=== PATIENT | female | born 1960 | race Caucasian/White ===

== ENCOUNTER 2017-02-15 09:03 | Emergency (ER) | payer OTHER ==
[~2017-02-15] VITALS: Ht 157.5 cm; Wt 92.7 kg
[2017-02-15 09:06] VITALS: Ht 157.5 cm; Wt 92.7 kg
[2017-02-15] MEDS ORDERED: HYDROmorphONE 1 MG/ML SYG IV STA (09:21)
[2017-02-15] MEDS ORDERED: SOD CHLORIDE 0.9% 1,000 ML IV STA (09:21)
[2017-02-15] MEDS ORDERED: ONDANSETRON 4 MG INJ IV STA (09:21)
[2017-02-15 10:29] LABS: ADD UMIC NO; UR ASCORBIC ACID NEGATIVE (NEGATIVE); UR BILIRUBIN (Dip) NEGATIVE (NEGATIVE); UR BLOOD (Dip) NEGATIVE (NEGATIVE); UR CLARITY CLEAR (CLEAR); UR COLOR STRAW (YELLOW); UR GLUCOSE (Dip) NEGATIVE (NEGATIVE); UR KETONES (Dip) TRACE mg/dL (NEGATIVE); UR LEUKOCYTE ESTERASE (Dip) NEGATIVE Leu/ul (NEGATIVE); UR NITRITE (Dip) NEGATIVE (NEGATIVE); UR TOTAL PROTEIN (Dip) NEGATIVE (NEGATIVE); UR UROBILINOGEN (Dip) NEGATIVE (NEGATIVE)
[2017-02-15 10:30] LABS: BASOPHIL # 0.1 10^3/ul (0.0-0.1); BASOPHILS % 0.9 % (0.0-2.0); EOSINOPHILS # 0.1 10^3/ul (0.0-0.5); EOSINOPHILS % 0.6 % (0.0-7.0); HEMATOCRIT 40.5 % (37.0-47.0); HEMOGLOBIN 13.9 g/dl (12.0-16.0); LYMPHOCYTES # 2.3 10^3/ul (0.8-2.9); LYMPHOCYTES % 27.9 % (15.0-51.0); MEAN CORPUSCULAR HEMOGLOBIN 29.2 pg (29.0-33.0); MEAN CORPUSCULAR HGB CONC 34.3 g/dl (32.0-37.0); MEAN CORPUSCULAR VOLUME 85.1 fl (82.0-101.0); MEAN PLATELET VOLUME 9.8 fl (7.4-10.4); MONOCYTE # 0.4 10^3/ul (0.3-0.9); MONOCYTES % 4.6 % (0.0-11.0); NEUTROPHIL # 5.3 10^3/ul (1.6-7.5); NEUTROPHILS % 65.8 % (39.0-77.0); PLATELET COUNT 337 10^3/UL (140-415); RED BLOOD COUNT 4.76 10^6/ul (4.20-5.40); RED CELL DISTRIBUTION WIDTH 12.6 % (11.5-14.5); WHITE BLOOD COUNT 8.1 10^3/ul (4.8-10.8)
--- NOTE | 2017-02-15 10:31 | RADRPT ---
PROCEDURE: CT Abdomen and Pelvis without contrast. CLINICAL INDICATION: Left flank pain since last night. TECHNIQUE: CT scan of the abdomen and pelvis without contrast was performed on a multidetector hig h-resolution CT scanner. The patient was scanned without intravenous contrast. Coronal and sagittal reformatted images were obtained from the axial source images. Images were reviewed on a high-resol [employer] PACS workstation. The total exam CTDI equals 21.5 mGy and the total exam DLP equals 1215.88 mG y-cm. One or the following dose reduction techniques were used: -Automated exposure control. -Adjustment of the mA and/or KV according to patient's size. -Use of iterative reconstruction technique. DICOM images are available. COMPARISON: None. FINDINGS: Lung Bases: Unremarkable. GI:. There is a tiny hiatal hernia present. Liver: Liver appears normal in size with a decrease in the overall attenuation consistent with mild steatosis. Gallbladder: Gallbladder appears mildly distended without wall thickening or biliary tree dilatation . Pancreas: Unremarkable. Spleen: Unremarkablel Adrenals: Unremarkable. Kidneys: There is right-sided nephrolithiasis. There is no evidence of obstructive uropathy or urete ral lithiasis. Bladder: Unremarkable. Pelvic Organs: Unremarkable. Skeleton: Normal for age. Other: There is a small umbilical hernia containing fat and a small right inguinal hernia containing fat. IMPRESSION: 1. Decreased attenuation throughout the liver consistent with diffuse steatosis. 2. Mildly dilated gallbladder. This may be due to prolonged fasting. 3. Small hiatal hernia. 4. Right-sided nephrolithiasis. No evidence of obstructive uropathy or ureteral lithiasis. 5. Mild scattered colonic diverticulosis without evidence of acute diverticulitis. 6. Normal-appearing vermiform appendix visualized. 7. Small umbilical and right inguinal hernias containing fat only. RPTAT: [facility] Physician Ralph Date Time Electronically viewed and signed by Physician Ralph on 02/15/2017 10:31 JUANIS/
[2017-02-15 10:56] LABS: ALBUMIN 4.7 g/dl (3.3-4.9); ALBUMIN/GLOBULIN RATIO 1.38; BILIRUBIN,INDIRECT 0.5 mg/dl (0-1.1); BILIRUBIN,TOTAL 0.5 mg/dl (0.2-1.3); CALCIUM 10.7 mg/dl (8.4-10.2); CREATININE 0.54 mg/dl (0.44-1.00); POTASSIUM 3.6 mmol/L (3.5-5.1); TOTAL PROTEIN 8.1 g/dl (6.1-8.1)
[2017-02-15] MEDS ORDERED: KETOROLAC 30 MG INJ IV STA (11:21)
[2017-02-15 12:52] VITALS: BP 147/71; PULSE 77; RESP 18; TEMP 98.4
--- NOTE | 2017-02-15 13:24 | ERD ---
ER Documentation Chief Complaint Chief Complaint pt bib with c/o left flank pain, dx kidney stone from [facility] 56-year-old female history of nephrolithiasis on the right side is coming in with severe left-sided flank and low back pain starting last night. The patient reports that she had a CT scan on January 20 when she was seen at [facility] in [place] and was diagnosed with right-sided nephrolithiasis. She then went and last night because she had sudden onset of sharp pain on the left flank, it is achy diffuse and radiates to her left lower quadrant in the abdomen. The pain does not seem to get better with the Naprosyn , she went to the emergency department last night where they did blood work and her labs were all normal and she was discharged home with additional pain medicine including Percocet. She denies fevers or chills or vomiting, diarrhea. She denies chest pain, shortness of breath, dizziness. ROS All systems reviewed and are negative except as per history of present illness. Allergies Allergies: Coded Allergies: No Known Allergy (Unverified , 02/15/17) Physical Exam Vitals Vital Signs Date Time Temp Pulse Resp B/P Pulse Ox O2 Delivery O2 Flow Rate FiO2 02/15/17 12:52 98.4 77 18 147/71 96 Room Air 02/15/17 09:06 97.2 94 18 174/68 99 Physical Exam General: Well-developed, well-nourished. The patient appears in no acute distress. HEENT: Head is normocephalic, atraumatic. No scleral icterus. Neck: Supple. Nontender. Lungs: Clear to auscultation. Normal air movement. Heart: Regular rate and rhythm. S1 and S2 are normal. No murmurs, gallops, or rubs. Abdomen: Soft, nontender, nondistended. Bowel sounds are normoactive. Diffuse low back pain tenderness with palpation in the lumbar region, there is no midline pain. No CVA tenderness. No abdominal masses. Extremities: No clubbing or cyanosis. Normal pulses. Moving extremities x 4. No weakness. Neurologic: Alert and oriented 3. No focal deficits. Skin: Normal turgor. No rash or lesions. Result Diagram: 02/15/17 0950 02/15/17 0950 Results 24 hrs Laboratory Tests Test 02/15/17 09:43 02/15/17 09:50 Urine Color STRAW Urine Clarity CLEAR Urine pH 9.0 Urine Specific [place] 1.010 Urine Ketones TRACEmg/dL Urine Nitrite NEGATIVEmg/dL Urine Bilirubin NEGATIVEmg/dL Urine Urobilinogen NEGATIVEmg/dL Urine Leukocyte Esterase NEGATIVELeu/ul Urine Hemoglobin NEGATIVEmg/dL Urine Glucose NEGATIVEmg/dL Urine Total Protein NEGATIVEmg/dl White Blood Count 8.110^3/ul Red Blood Count 4.7610^6/ul Hemoglobin 13.9g/dl Hematocrit 40.5% Mean Corpuscular Volume 85.1fl Mean Corpuscular Hemoglobin 29.2pg Mean Corpuscular Hemoglobin Concent 34.3g/dl Red Cell Distribution Width 12.6% Platelet Count 88028^3/UL Mean Platelet Volume 9.8fl Neutrophils % 65.8% Lymphocytes % 27.9% Monocytes % 4.6% Eosinophils % 0.6% Basophils % 0.9% Nucleated Red Blood Cells % 0.0/100WBC Neutrophils # 5.310^3/ul Lymphocytes # 2.310^3/ul Monocytes # 0.410^3/ul Eosinophils # 0.110^3/ul Basophils # 0.110^3/ul Nucleated Red Blood Cells # 0.010^3/ul Sodium Level 144mmol/L Potassium Level 3.6mmol/L Chloride Level 107mmol/L Carbon Dioxide Level 23mmol/L Anion Gap 18 Blood Urea Nitrogen 14mg/dl Creatinine 0.54mg/dl Glucose Level 146mg/dl Calcium Level 10.7mg/dl Total Bilirubin 0.5mg/dl Direct Bilirubin 0.00mg/dl Indirect Bilirubin 0.5mg/dl Aspartate Amino Transf (AST/SGOT) 24IU/L Alanine Aminotransferase (ALT/SGPT) 35IU/L Alkaline Phosphatase 133IU/L Total Protein 8.1g/dl Albumin 4.7g/dl Globulin 3.40g/dl Albumin/Globulin Ratio 1.38 Lipase 101U/L Current Medications Medications (Trade) Dose Ordered Sig/Lesly Route PRN Reason Start Time Stop Time Status Last Admin Dose Admin Sodium Chloride (NS) 1,000 ml @ 1,000 mls/hr Q1H STAT IV 02/15/17 09:21 02/15/17 10:20 DC 02/15/17 09:58 Hydromorphone HCl (Dilaudid) 1 mg ONCE STAT IV 02/15/17 09:21 02/15/17 09:23 DC 02/15/17 09:50 Ondansetron HCl (Zofran Inj) 4 mg ONCE STAT IV 02/15/17 09:21 02/15/17 09:23 DC 02/15/17 09:49 Ketorolac Tromethamine (Toradol) 30 mg ONCE STAT IV 02/15/17 11:21 02/15/17 11:22 DC 02/15/17 12:04 DIAGNOSTIC IMAGING REPORT Patient: SERGO MCNAMARA : 1960 Age: 56 Sex: F MR #: [id number] DOS: 02/15/17920 Ordering MD: JOSÉ WHITAKER PA-C Location: [facility] Room/Bed: PROCEDURE: CT Abdomen and Pelvis without contrast. CLINICAL INDICATION: Left flank pain since last night. TECHNIQUE: CT scan of the abdomen and pelvis without contrast was performed on a multidetector high-resolution CT scanner. The patient was scanned without intravenous contrast. Coronal and sagittal reformatted images were obtained from the axial source images. Images were reviewed on a high-resolution PACS workstation. The total exam CTDI equals 21.5 mGy and the total exam DLP equals 1215.88 mGy-cm. One or the following dose reduction techniques were used: -Automated exposure control. -Adjustment of the mA and/or KV according to patient's size. -Use of iterative reconstruction technique. DICOM images are available. COMPARISON: None. FINDINGS: Lung Bases: Unremarkable. GI:. There is a tiny hiatal hernia present. Liver: Liver appears normal in size with a decrease in the overall attenuation consistent with mild steatosis. Gallbladder: Gallbladder appears mildly distended without wall thickening or biliary tree dilatation. Pancreas: Unremarkable. Spleen: Unremarkablel Adrenals: Unremarkable. Kidneys: There is right-sided nephrolithiasis. There is no evidence of obstructive uropathy or ureteral lithiasis. Bladder: Unremarkable. Pelvic Organs: Unremarkable. Skeleton: Normal for age. Other: There is a small umbilical hernia containing fat and a small right inguinal hernia containing fat. IMPRESSION: 1. Decreased attenuation throughout the liver consistent with diffuse steatosis. 2. Mildly dilated gallbladder. This may be due to prolonged fasting. 3. Small hiatal hernia. 4. Right-sided nephrolithiasis. No evidence of obstructive uropathy or ureteral lithiasis. 5. Mild scattered colonic diverticulosis without evidence of acute diverticulitis. 6. Normal-appearing vermiform appendix visualized. 7. Small umbilical and right inguinal hernias containing fat only. RPTAT: [facility] Physician Ralph Date Time Electronically viewed and signed by Memo Augustine Physician on 02/15/2017 10: 31 JH/ Procedures/MDM 56-year-old female comes in with severe left-sided flank and low back pain, differential diagnosis includes musculoskeletal pain, radiculopathy, kidney stones, pyelonephritis, dissection, cauda equina, epidural abscess, diverticulitis, bowel obstruction, volvulus, incarcerated hernia. CT abdomen shows hepatic steatosis, diverticulosis, inguinal hernia that is fat-containing a small umbilical hernia as well. She also has nonobstructing renal calculi on the right side. There is no evidence of a surgical or acute abdominal process. The patient will be given copies of her CT and her blood work. Her pain was controlled emergency department with intravenous medication including Dilaudid and Toradol. I have done serial abdominal examinations on her and she is resting comfortably and ambulatory. Imaging and labs were discussed with attending physician who agrees with the care and plan. The patient's abdominal pain was reexamined. Patient was sitting comfortably with improved pain. Patient was not in any distress. Patient's blood pressure was elevated (>120/80) but appears stable without evidence of hypertension emergency or urgency. The patient was counseled about the risks of hypertension and urged to pursue outpatient monitoring and therapy within a week with their primary care physician. Departure Diagnosis: Primary Impression: Flank pain Additional Impressions: Diverticulosis Inguinal hernia Hepatic steatosis Right nephrolithiasis Patient Instructions: Flank Pain, Uncertain Cause Referrals: JOHNY GRAVES MD (PCP) Additional Instructions: Llame al doctor MAANA y jadon aster JULY PARA DENTRO DE 1-2 [place].Dgale a la secretaria que nosotros le instruimos hacer esta july.Avise o llame si guerrero condicin se empeora antes de la july. Regresa aqui si peor o no mejor. JOSÉ WHITAKER PA-C Feb 15, 2017 13:24
== END 2017-02-15 12:53 | disposition home or self-care (01) ==
LOC: FTE 09:03
DX: K57.30 Diverticulosis of large intestine without perforation or abscess without bleeding (principal); K40.90 Unilateral inguinal hernia, without obstruction or gangrene, not specified as recurrent; K76.0 Fatty (change of) liver, not elsewhere classified; N20.0 Calculus of kidney
CPT/HCPCS: 36415; 74176; 80053; 81003; 83690; 85025; 96374; 96375; 99285; J1170; J1885; J2405; J7030